=== PATIENT | female | born 1955 | race African-American/Black ===

== ENCOUNTER 2023-11-23 09:19 | Inpatient (IN) | payer MEDICARE, OTHER ==
[2023-11-23] MEDS ORDERED: Ciprofloxacin Lactate D5W 400 mg (200 mL) BAG ONE (10:50)
[2023-11-23 11:02] LABS: Troponin I Less than 0.010 ng/mL (< 0.028)
[2023-11-23] MEDS ORDERED: HYDROmorphone 0.5 MG/0.5 ML SYRINGE ONE (11:11)
[2023-11-23] MEDS ORDERED: Senokot S 8.6-50 MG TAB PO PRN (12:14)
[2023-11-23] MEDS ORDERED: Ondansetron PF 4 MG/2 ML Vial IVP PRN (12:14)
[2023-11-23] MEDS ORDERED: Calcium Carbonate 500 MG ChewTAB PO PRN (12:14)
[2023-11-23] MEDS ORDERED: Ipratropium/Albuterol 3 ML NEB NEB PRN (12:15)
[2023-11-23] MEDS ORDERED: Lactated Ringer's 1,000 ML IV SCH (12:30)
[2023-11-23] MEDS ORDERED: Potassium Chloride 20 MEQ in Premix 1 BAG IVPB SCH (13:00)
[2023-11-23] MEDS: Potassium Chloride 20 MEQ TAB PO SCH (14:47)
[2023-11-23] MEDS: Hydrocortisone Sod Succ/PF 100 mg/2 ml Vial IVP SCH (14:47)
[2023-11-23] MEDS: Pantoprazole 40 MG VIAL IVP SCH (14:48)
[2023-11-23] MEDS: Morphine 2 MG/ML VIAL SLOW IVP PRN (14:48)
[2023-11-23] MEDS: Piperacillin/Tazobactam 3.375 GM in Sodium Chloride 0.9% 100 ML IVPB SCH ×2 (14:49→20:04)
[2023-11-23] MEDS: Lactated Ringer's 1,000 ML IV SCH (15:00)
[2023-11-23 15:22] VITALS: BMI 24.0
[2023-11-23 18:42] LABS: Hematocrit 41.3 % (36.0-47.0); Mean Corpuscular HGB CONC 31.5 g/dL (32.0-36.0); Mean Corpuscular Hemoglobin 24.9 pg (27.0-31.0); Mean Corpuscular Volume 79.1 fL (78.0-98.0); Mean Platelet Volume 10.6 fL (7.4-10.4); Platelet Count 232 10x3/uL (130-400); RBC Distribution Width 16.3 % (11.5-14.5); Red Blood Cell (RBC) Count 5.22 mill/uL (4.20-5.40)
[2023-11-23 18:47] LABS: ALT (SGPT) 66 U/L (8-55); AST (SGOT) 80 U/L (5-34); Albumin 2.8 g/dL (3.4-4.8); Alkaline Phosphatase 142 U/L (40-110); Anion Gap 13 mmol/L (10-20); BUN (Urea Nitrogen) 16 mg/dL (9.8-20.1); Bilirubin, Direct 4.2 mg/dL (0.1-0.3); Bilirubin, Total 5.5 mg/dL (0.2-1.2); Calc. Creatinine Clearance 65 mL/min (70-130); Calcium 8.8 mg/dL (7.8-10.44); Carbon Dioxide 17 mmol/L (23-31); Chloride 115 mmol/L (98-107); Estimated GFR 90; Glucose 92 mg/dL (80-115); Potassium 4.1 mmol/L (3.5-5.1); Protein, Total 5.5 g/dL (5.8-8.1); Sodium 141 mmol/L (136-145)
[2023-11-23 19:12] LABS: Band 18 % (5-11); Eosinophils 1 % (0-10); Large Platelets 1.9 % (0-5); Lymphocytes 3 % (21-51); Metamyelocyte 1 % (0-0); Microcytosis SLIGHT = 6-15 cells HPF (0-5); Neutrophil 77 % (42-75); Ovalocytes SLIGHT = 2-5 cells HPF (0-1); Platelet Adequacy Comment Platelets Normal; Polychromasia SLIGHT = 2-3 cells HPF (0-2); Target Cells SLIGHT = 2-5 cells HPF (0-1)
[2023-11-23] MEDS: Famotidine/PF 20 mg/2ml Vial SLOW IVP SCH (20:04)
[2023-11-23 21:02] LABS: Prothrombin Time 13.7 sec (12.0-14.7)
[2023-11-24 06:28] LABS: Hematocrit 39.6 % (36.0-47.0); Hemoglobin 12.7 g/dL (12.0-16.0); Mean Corpuscular HGB CONC 32.1 g/dL (32.0-36.0); Mean Corpuscular Hemoglobin 24.2 pg (27.0-31.0); Mean Corpuscular Volume 75.6 fL (78.0-98.0); Mean Platelet Volume 11.2 fL (7.4-10.4); Platelet Count 277 10x3/uL (130-400); RBC Distribution Width 15.9 % (11.5-14.5); Red Blood Cell (RBC) Count 5.24 mill/uL (4.20-5.40)
[2023-11-24 06:56] LABS: ALT (SGPT) 55 U/L (8-55); AST (SGOT) 59 U/L (5-34); Albumin 2.7 g/dL (3.4-4.8); Alkaline Phosphatase 131 U/L (40-110); Anion Gap 12 mmol/L (10-20); BUN (Urea Nitrogen) 13 mg/dL (9.8-20.1); Calc. Creatinine Clearance 67 mL/min (70-130); Carbon Dioxide 19 mmol/L (23-31); Chloride 119 mmol/L (98-107); Estimated GFR 94; Globulin 2.7 g/dL (2.4-3.5); Glucose 90 mg/dL (80-115); Lipase 1687 U/L (8-78); Potassium 4.1 mmol/L (3.5-5.1); Protein, Total 5.4 g/dL (5.8-8.1); Sodium 146 mmol/L (136-145)
[2023-11-24 07:26] LABS: Band 7 % (5-11); Giant Platelets 1.9 % (0-5); Large Platelets 0.9 % (0-5); Lymphocytes 3 % (21-51); Monocytes 2 % (0-10); Neutrophil 86 % (42-75); Platelet Adequacy Comment Platelets Normal; RBC Morphology Within Normal Limits; Reactive Lymphocytes 1 % (0-10)
[2023-11-24] MEDS: predniSONE 5 MG TAB PO SCH (08:10)
[2023-11-24] MEDS: Hydrocortisone Sod Succ/PF 100 mg/2 ml Vial IVP SCH (12:03)
[2023-11-24] MEDS: Acetaminophen 325 MG TAB PO PRN (14:27)
[2023-11-24 17:13] VITALS: BMI 24.0
[2023-11-25] MEDS: Hydrocortisone Sod Succ/PF 100 mg/2 ml Vial IVP SCH (04:54)
[2023-11-25 06:33] LABS: Hematocrit 33.9 % (36.0-47.0); Hemoglobin 10.7 g/dL (12.0-16.0); Mean Corpuscular HGB CONC 31.6 g/dL (32.0-36.0); Mean Corpuscular Hemoglobin 24.3 pg (27.0-31.0); Mean Platelet Volume 10.8 fL (7.4-10.4); Platelet Count 225 10x3/uL (130-400); RBC Distribution Width 15.8 % (11.5-14.5)
[2023-11-25 07:00] LABS: Anisocytosis SLIGHT = 6-15 cells HPF (0-5); Band 3 % (5-11); Elliptocytes SLIGHT = 2-5 cells HPF (0-1); Eosinophils 1 % (0-10); Hypochromia SLIGHT = 6-15 cells HPF (0-5); Lymphocytes 3 % (21-51); Metamyelocyte 3 % (0-0); Microcytosis MODERATE=15-30 cells HPF (0-5); Monocytes 2 % (0-10); Neutrophil 87 % (42-75); Platelet Adequacy Comment Platelets Normal; Polychromasia SLIGHT = 2-3 cells HPF (0-2); Reactive Lymphocytes 1 % (0-10); Schistocytes SLIGHT = 2-5 cells HPF (0-1); Target Cells SLIGHT = 2-5 cells HPF (0-1); Tear Drops SLIGHT = 2-5 cells HPF (0-1); Vacuoles SLIGHT
[2023-11-25 07:26] LABS: Anion Gap 12 mmol/L (10-20); BUN (Urea Nitrogen) 9 mg/dL (9.8-20.1); Calc. Creatinine Clearance 84 mL/min (70-130); Calcium 9.5 mg/dL (7.8-10.44); Carbon Dioxide 22 mmol/L (23-31); Chloride 113 mmol/L (98-107); Estimated GFR 99; Glucose 85 mg/dL (80-115); Magnesium 1.8 mg/dL (1.6-2.6); Phosphorus 0.9 mg/dL (2.3-4.7); Sodium 144 mmol/L (136-145)
[2023-11-25 07:27] LABS: Lipase 517 U/L (8-78)
[2023-11-25] MEDS ORDERED: Potassium Chloride 20 MEQ (100 mL) BAG IVPB SCH (09:00)
[2023-11-25 09:06] LABS: ALT (SGPT) 37 U/L (8-55); AST (SGOT) 37 U/L (5-34); Albumin 2.5 g/dL (3.4-4.8); Alkaline Phosphatase 121 U/L (40-110); Bilirubin, Direct 0.8 mg/dL (0.1-0.3); Bilirubin, Total 1.5 mg/dL (0.2-1.2); Protein, Total 5.5 g/dL (5.8-8.1)
[2023-11-25] MEDS ORDERED: Rocuronium Bromide 10 MG/ML (10ML VIAL) ONE (09:29)
[2023-11-25] MEDS ORDERED: Fentanyl 250 MCG/5 ML VIAL ONE (09:29)
[2023-11-25] MEDS ORDERED: PROPOFOL 20 ML ONE (09:29)
[2023-11-25] MEDS ORDERED: Dexamethasone 4 mg/ml Vial ONE (09:30)
[2023-11-25] MEDS ORDERED: Ondansetron PF 4 MG/2 ML Vial ONE (09:30)
[2023-11-25] MEDS ORDERED: Indocyanine Green 25 MG/10 ML VIAL ONE (09:34)
[2023-11-25] MEDS ORDERED: Iopamidol 0 ML ONE (09:35)
[2023-11-25] MEDS: Potassium Chloride 20 MEQ in Premix 1 BAG IVPB SCH (09:36)
[2023-11-25] MEDS: PHOS-NAK 1 PKT PACK PO SCH (09:36)
[2023-11-25] MEDS ORDERED: EPINEPHrine 1 MG/ML VIAL ONE (09:40)
[2023-11-25] MEDS ORDERED: Bupivacaine 0.25% HCL 30 ML VIAL ONE (09:40)
[2023-11-25] MEDS: Sodium Phosphate 45 MMOL in Sodium Chloride 0.9% 250 ML 250 ML IVPB SCH (09:59)
[2023-11-25] MEDS ORDERED: Lidocaine 4% Topical Sol 50 ML BOT ONE (10:34)
[2023-11-25] MEDS ORDERED: Sodium Chloride 0.9% 100 ML ONE (10:47)
[2023-11-25] MEDS ORDERED: Piperacillin/Tazobactam 3.375 GM VIAL ONE (10:47)
[2023-11-25] MEDS ORDERED: Midazolam HCl 2 mg/2 ml Vial ONE (10:58)
[2023-11-25] MEDS ORDERED: Hydrocortisone Sod Succ/PF 100 mg/2 ml Vial ONE (10:59)
[2023-11-25] MEDS ORDERED: ePHEDrine Sulfate 50 MG/10 ML VIAL ONE (11:12)
[2023-11-25] MEDS ORDERED: PHENYLEPHRINE-NS 100 MCG/ML 10 ML SYRINGE ONE (11:15)
[2023-11-25] MEDS ORDERED: Esmolol 100 MG/10 ML VIAL ONE (11:52)
[2023-11-25] MEDS ORDERED: Ondansetron HCl/PF 4 MG/2 ML Vial IVP PRN (11:57)
[2023-11-25] MEDS ORDERED: Promethazine HCl 25 MG/ML VIAL IM PRN (11:57)
[2023-11-25] MEDS ORDERED: HYDROmorphone 2 MG/ML VIAL SLOW IVP PRN (11:57)
[2023-11-25] MEDS ORDERED: SUGAMMADEX SODIUM 200 MG/2 ML VIAL ONE (11:59)
[2023-11-25] MEDS ORDERED: fentaNYL 50 mcg/mL 1 mL Vial ONE (12:26)
[2023-11-25] MEDS ORDERED: Ipratropium/Albuterol 3 ML NEB ONE (12:53)
[2023-11-25] MEDS ORDERED: Dextrose 5% in Water 1,000 ML IV PRN (13:40)
[2023-11-25] MEDS ORDERED: Dextrose 50% Abboject 50 ML SYRINGE SLOW IVP PRN (13:40)
[2023-11-25] MEDS ORDERED: Glucagon 1 MG/ML KIT IM PRN (13:40)
[2023-11-25] MEDS ORDERED: Ondansetron PF 4 MG/2 ML Vial IVP PRN (13:40)
[2023-11-25] MEDS ORDERED: HYDROcodone/Acetaminophen 10/325 mg Tablet PO PRN (13:40)
[2023-11-25] MEDS ORDERED: oxyCODONE 5 MG TAB PO PRN (14:12)
[2023-11-25] MEDS ORDERED: Acetaminophen 500 MG TAB PO PRN (14:12)
[2023-11-25] MEDS: D5 1/2 NS w/20 mEq KCL 1,000 ML IV SCH (14:38)
[2023-11-25] MEDS: Ketorolac Tromethamine 30 MG (1 mL) VIAL IVP SCH (14:39)
[2023-11-25] MEDS: Albumin 25% 25 GM (100 mL) BOT IVPB SCH (17:00)
[2023-11-25] MEDS: Famotidine 20 MG TAB PO SCH (20:23)
[2023-11-26 06:21] LABS: #Basophils Less than 0.03 10x3/uL (0.0-0.2); #Eosinphils Less than 0.03 10x3/uL (0.0-0.7); %Eosinophils 0.1 % (0.0-10.0); %Lymphocytes 5.2 % (21.0-51.0); %Monocytes 6.3 % (0.0-10.0); %Neutrophils 87.9 % (42.0-75.0); Hematocrit 27.2 % (36.0-47.0); Hemoglobin 8.8 g/dL (12.0-16.0); Mean Corpuscular HGB CONC 32.4 g/dL (32.0-36.0); Mean Corpuscular Hemoglobin 24.3 pg (27.0-31.0); Mean Corpuscular Volume 75.1 fL (78.0-98.0); Mean Platelet Volume 10.8 fL (7.4-10.4); Platelet Count 203 10x3/uL (130-400); RBC Distribution Width 15.3 % (11.5-14.5); Red Blood Cell (RBC) Count 3.62 mill/uL (4.20-5.40)
[2023-11-26 06:41] LABS: ALT (SGPT) 36 U/L (8-55); AST (SGOT) 48 U/L (5-34); Albumin 2.9 g/dL (3.4-4.8); Alkaline Phosphatase 84 U/L (40-110); Anion Gap 9 mmol/L (10-20); BUN (Urea Nitrogen) 9 mg/dL (9.8-20.1); Bilirubin, Direct 0.5 mg/dL (0.1-0.3); Calc. Creatinine Clearance 79 mL/min (70-130); Calcium 8.8 mg/dL (7.8-10.44); Carbon Dioxide 24 mmol/L (23-31); Chloride 115 mmol/L (98-107); Estimated GFR 98; Glucose 141 mg/dL (80-115); Protein, Total 5.2 g/dL (5.8-8.1); Sodium 145 mmol/L (136-145)
[2023-11-26] MEDS ORDERED: Enoxaparin 30 MG (0.3 mL) SYRINGE SC SCH (09:00)
[2023-11-26] MEDS: predniSONE 5 MG TAB PO SCH (09:03)
[2023-11-26] MEDS: Potassium Chloride 20 MEQ TAB PO SCH ×2 (09:04→11:22)
[2023-11-26] MEDS: Enoxaparin 40 MG (0.4 mL) SYRINGE SC SCH (09:06)
[2023-11-26] MEDS: Potassium Chloride 20 MEQ (100 mL) BAG IVPB SCH (09:07)
[2023-11-26 09:11] LABS: Magnesium 1.9 mg/dL (1.6-2.6)
[2023-11-26 15:43] VITALS: BP 160/87; TEMP 97.4
== END 2023-11-26 15:02 | disposition home or self-care (01) | DRG 417 ==
LOC: SUATTDRO 09:19 → ERS 09:19 → T4-A 14:22
PROVIDERS: ADMIT Internal Medicine; ATTEND Hospitalist
PROC: 0FT44ZZ Resection of Gallbladder, Percutaneous Endoscopic Approach (ICD-10-PCS; principal; 2023-11-25)
PROC: 8E0W4CZ Robotic Assisted Procedure of Trunk Region, Percutaneous Endoscopic Approach (ICD-10-PCS; 2023-11-25)
PROC: BF141ZZ Fluoroscopy of Gallbladder, Bile Ducts and Pancreatic Ducts using Low Osmolar Contrast (ICD-10-PCS; 2023-11-25)
DX: K80.42 Calculus of bile duct with acute cholecystitis without obstruction (principal); J18.9 Pneumonia, unspecified organism; K85.90 Acute pancreatitis without necrosis or infection, unspecified; E87.0 Hyperosmolality and hypernatremia; M06.9 Rheumatoid arthritis, unspecified; I10 Essential (primary) hypertension; E78.5 Hyperlipidemia, unspecified; K21.9 Gastro-esophageal reflux disease without esophagitis; Z79.899 Other long term (current) drug therapy; Z90.710 Acquired absence of both cervix and uterus; F17.210 Nicotine dependence, cigarettes, uncomplicated
CPT/HCPCS: 36415; 71045; 74181; 76376; 76705; 80048; 80053; 80076; 83690; 83735; 84100; 84145; 84484; 85025; 85610; 85730; 86850; 86900; 86901; 87040; 88304; 96361; 96365; 96375; C1889; J0171; J0665; J0744; J1100; J1170; J1650; J1720; J1885; J2250; J2272; J2405; J2470; J2543; J2704; J3010; J3480; J3490; J7050; J7120; J7512; J7620; P9047; Q9967